=== PATIENT | female | born 1975 | race Caucasian/White ===

== ENCOUNTER 2020-01-22 21:32 | Outpatient (REF) | payer OTHER, SELFPAY | END 2020-01-22 21:52 | LOC: LBO 21:32 | PROVIDERS: PCP Family Medicine; Visit Provider Family Medicine | DX: E03.9 Hypothyroidism, unspecified (principal) | CPT/HCPCS: 84443 ==

== ENCOUNTER 2021-08-17 00:50 | Outpatient (CLI) | payer OTHER, SELFPAY ==
[2021-08-17 01:22] LABS: TSH (W/Ref FT4) 0.76 uIU/mL (0.36-3.74)
== END 2021-08-17 00:51 | disposition home or self-care (01) ==
PROVIDERS: PCP Family Medicine; Visit Provider Family Medicine
DX: E03.9 Hypothyroidism, unspecified (principal)
CPT/HCPCS: 36415; 84443

== ENCOUNTER 2022-09-17 02:10 | Outpatient (CLI) | payer OTHER, SELFPAY ==
--- NOTE | 2022-09-17 | DI.MAMMO_ITS ---
Exam(s) MAMMO SCREENING EXAM: MAMMO SCREENING CLINICAL HISTORY: SCREENING MAMMO FOR BREAST CANCER Z12.31. TECHNIQUE: Bilateral full field digital CC and MLO mammographic images were obtained with 3D tomosyn thesis and utilizing computer aided detection (CAD). COMPARISON: None. This is a baseline mammogram on this 46-year-old patient. FINDINGS: There are no spiculated masses nor malignant appearing microcalcification groups. There is no significant architectural distortion nor skin thickening-retraction. IMPRESSION: No radiographic evidence of malignancy. However I note this patient apparently has a history of six-month left breast pain. Recommend follow- up ultrasound. BI-RADS Category 1 - Negative Breast Density - Category B - Scattered areas of fibroglandular density Breast density Category C or D implies that the patient has dense breast tissue. Dense breast tissue can make it harder to find cancer on a mammogram. Dense breast tissue is also associated with an incr eased risk of breast cancer. This information about the result of the mammogram report was provided to the patient to raise their awareness. Use this report when you speak with the patient about their risks for breast cancer, which includes their family history. At that time, you may recommend additional screening tests (Ultrasoun d or MRI) as these tests may add significant information. A negative radiographic report should not delay biopsy if a dominant or clinically suspicious mass is present. Up to ten percent of cancers are not identified on mammography. A negative report may reinforce clinical impression. Adenosis and dense breasts may obscure an underlying neoplasm. False positive reports average 6 to 10%. Patient will receive a letter notifying them of these results.
== END 2022-09-17 02:30 ==
PROVIDERS: PCP Family Medicine; Visit Provider Family Medicine
DX: Z12.31 Encounter for screening mammogram for malignant neoplasm of breast (principal); N64.4 Mastodynia
CPT/HCPCS: 77063; 77067

== ENCOUNTER 2023-12-20 00:39 | Outpatient (CLI) | payer OTHER, SELFPAY ==
[2023-12-20 01:26] LABS: Calculated LDL 86 mg/dL (<100); Cholesterol 185 mg/dL (<200); HDL Cholesterol 56 mg/dL (40-60); TSH (W/Ref FT4) 2.77 uIU/mL (0.36-3.74); Triglyceride 219 mg/dL (<150)
== END 2023-12-20 00:40 | disposition home or self-care (01) ==
LOC: LBO 00:41
PROVIDERS: PCP Family Medicine; Visit Provider Family Medicine
DX: Z13.220 Encounter for screening for lipoid disorders (principal); E03.9 Hypothyroidism, unspecified
CPT/HCPCS: 80061; 84443

== ENCOUNTER 2024-09-25 17:57 | Emergency (ER) | payer OTHER, SELFPAY ==
[2024-09-25] VITALS (17 sets, daily range): BP systolic 106–134; BP diastolic 64–83; PULSE 95–123; RESP 13–33; TEMP 36.8; O2SAT 95–98
--- NOTE | 2024-09-25 17:45 | RT.EKG_ITS ---
APPROVED REPORT Exam: Resting ECG Reason for Exam: dizziness Patient Location: E HR:95 bpm ECG Measurements Heart Rate 95 AXIS GA 148 P 66 QRSd 89 QRS 92 QT 360 T 44 QTc 454 Conclusion Sinus rhythm...normal P axis, V-rate 60- [address] segment or T wave abnormalities to suggest occlusive GA
--- NOTE | 2024-09-25 18:14 | ED.GENADUL_ITS ---
Discharge Plan Disposition Patient Disposition: Home Discharge Details Clinical Impression: Gastroenteritis Primary Care Provider: Raven Vincent ED Provider: Bev Ortega Home Meds and New Rx's Prescriptions: New ondansetron 4 mg tablet,disintegrating 4 mg PO Q6H PRN PRNQty: 7 0RF No Action levothyroxine 125 mcg capsule 125 mcg PO DAILY Discharge Instructions Additional Instructions: Please call your primary care provider to schedule follow-up appointment for reassessment if you are not feeling significantly better by Saturday. Stool cultures have been ordered. Stable hydrated, drinking plenty of electrolyte rich fluids. Gatorlyte is a good option. Broths can help provide protein and needed salts. Follow a BRAT diet. Allow yourself plenty of time to rest. You may use the Zofran provided for severe nausea/vomiting as needed. Return to emergency care if you develop new fever/chills, severe abdominal pain, uncontrollable vomiting, blood in your stool or emesis, decreased urine output, or if you are very worried and need to be rechecked again immediately. Referrals: Raven Vincent MD [Primary Care Provider] - [facility] General Date/Time Provider Initiated Documentation: 09/25/24 18:05 . [facility] Narrative: Hilary is a 48 year old female who presents to the emergency department today for evaluation of sudden onset of upper abdominal pain with distention accompanied by watery diarrhea and nausea with vomiting x 1. N/V has subsided but abdominal pain, described as ground glass going through my intestines has persisted with frequent watery diarrhea; distention has decreased somewhat since onset of diarrhea. Has been able to sip water since episode of vomiting, no current nausea. No blood in stool or emesis. Denies accompanying fever/chills, congestion, sore throat, cough, change in PO intake/appetite, urinary complaints, skin/hair changes. Had watery diarrhea last week which resolved spontaneously. No family members with similar sx. Denies significant past medical history other than hypothyroidism which is treated with levothyroxine; no history of abdominal surgeries or digestive diagnoses, diabetes, or other chronic health conditions. Family history is notable for colon cancer. Has had Cologuard testing done, no colonoscopy. +daily ETOH use. Physical exam remarkable for upper abdominal tenderness with palpation. Soft,mildly distended abdomen; no rigidity or guarding. Normoactive bowel sounds. No CVA tendernesss. Easy work of breathing, lung sounds clear bilaterally. Normal heart sounds. D/dx includes but is not limited to: acute cholecystitis/cholangitis, pancreatitis, hepatitis, ileus, bowel obstruction, diverticulitis, appendicitis, peptic ulcer disease. VS reassuring, pt does not meet SIRS criteria for sepsis. I independently interpreted the following tests: EKG reassuring, NSR rate 95, normal intervals, no changes c/w acute ischemia. Leukocytosis noted, WBC 22.67 with mild thrombocytosis (plt [phone]). CMP notable for mild hypokalemia, K 3.3. TSH, lipase, lactate, and mag reassuring. UA reassuring, not consistent with infection. CT abdomen/pelvis performed. Significant for generalized enteritis pattern from stomach to rectum. Discussed findings with Dr. Pina. There is also a small cyst and subtle subcapsular abnormal hypodensity in the liver; Hilary is aware of this and has had ultrasound performed in 2023. This is being monitored by PCP. While in the emergency department, Hilary received APAP and famotidine. History and presentation most consistent with viral or bacterial gastroenteritis. Discussed case with Dr. Brice, general surgery as there is concerned about the significant leukocytosis. He recommends stool cultures, empiric antibiotic treatment is not recommended at this time. Stool cultures ordered, including fecal calprotectin and lactoferrin. Hilary was able to tolerate p.o. prior to discharge. Reviewed discharge instructions with patient, including symptomatic management, importance of good hydration, and red flags indicating need for return to emergency care Related Data Home Medications ?Medication ?Instructions ?Recorded ?Confirmed levothyroxine 125 mcg capsule 125 mcg PO DAILY 09/25/24 09/25/24 ondansetron 4 mg disintegrating 4 mg PO Q6H PRN PRN #7 tabs 09/25/24 tablet Previous Rx's ?Medication ?Instructions ?Recorded ondansetron 4 mg disintegrating 4 mg PO Q6H PRN PRN #7 tabs 09/25/24 tablet Allergies Allergy/AdvReac Type Severity Reaction Status Date / Time NSAIDS (Non-Steroidal AdvReac Intermediate Other (See Verified 09/25/24 18:02 Anti-Inflamma Comment) General Stated Complaint: Nausea/Vomit/Diar LUÍS: 3 Review of Systems Narrative: see HPI Exam Const General: cooperative, no acute distress, well developed and well groomed Nutritional Appearance: average body habitus and well nourished Orientation: alert and oriented x3 Resp Effort & Inspection: normal respiratory effort and able to speak in complete sentences Auscultation: clear to auscultation bilaterally Cardio Rate: regular rate Rhythm: regular rhythm GI Inspection: normal to inspection, no abdominal wall ecchymosis, distended (mild, soft), no visible herniation and no visible pulsation Palpation: soft, not firm, no guarding, not rigid and tender in the epigastrum, in the LUQ and in the RUQ Auscultation: normal bowel sounds Back/Spine/Pelvis Back: no CVA tenderness Skin General skin exam: no rashes or lesions noted Trauma: no lacerations or abrasions Course Vital Signs Vital signs: Vital Signs Temperature 36.8 C 09/25/24 17:58 Pulse 95 H 09/25/24 17:58 Respiratory Rate 14 09/25/24 17:58 Blood Pressure 106/83 09/25/24 17:58 Pulse Oximetry 97 09/25/24 17:58 Temperature 36.8 C 09/25/24 17:58 Pulse 95 H 09/25/24 17:58 Respiratory Rate 14 09/25/24 17:58 Blood Pressure 106/83 09/25/24 17:58 Pulse Oximetry 97 09/25/24 17:58 Oxygen Delivery Method Room Air 09/25/24 17:58 Oxygen Flow Rate 0 09/25/24 17:58 Pain Level 4 09/25/24 17:58 Medical Decision Making Imaging Data Radiologic Study: Radiologist's impression: Accession No. : [id number] Creator : Pk Pina Dictator : Pk Pina Glycerine Plant Operator : Scheduler Maintenance : Pk Pina Approver2 : Report Date : 09/25/2024 19:40:17 Exam(s) CT ABDOMEN PELVIS W Addendum dictated 09/25/2024 at 7:40 p.m. Finding in left hepatic lobe is statistically most probably a benign hemangioma. However correlation with blood work and clinical findings recommended. Developing liver abscess cannot be completely excluded in the setting of severe enteritis, despite absence of gas in the portal venous system. Clinical in blood work correlation recommended. This liver finding requires appropriate imaging follow-up. Called by myself to ER provider 09/25/2024 at 7:43 p.m. [ Addendum Report Added by Pk Pina at 09/25/2024 19:46:10 ] Exam(s) CT ABDOMEN PELVIS W EXAM: CT ABDOMEN PELVIS W CLINICAL HISTORY: upper abd pain w/ n/v/d, tender to palpation. TECHNIQUE: Imaging Protocol: Axial computed tomography images with coronal and sagittal reformatted images were created and reviewed CONTRAST MATERIAL: Intravenous: Omnipaque-350 100cc Oral: None COMPARISON: No exams were available for comparison FINDINGS: VISUALIZED LUNG BASES: No nodules nor pleural effusions evident. ABDOMEN: GI: There is a diffuse enteritis pattern. The stomach and all of the small bowel loops are fluid-filled and upper normal diameters and the entire colon is also fluid-filled and upper normal diameter. Rectum is also fluid-filled. Appendix appears unremarkable. There are few uncomplicated sigmoid diverticuli. There is no evidence of bowel obstruction, free air, abscess, nor ascites. No evidence of gas in the portal venous system. LIVER: Liver is mildly hypodense implying steatosis. There is a small sub cm cyst adjacent to the gallbladder fossa. There is a subtle subcapsular abnormal hypodensity in the left hepatic lobe which is not a cyst but difficult to assess on a single phase study. Possibly a hemangioma or other pathology. There are no dilated intrahepatic ducts. GALLBLADDER/BILIARY: No obvious gallbladder pathology. CBD is not dilated. PANCREAS: No evidence of pancreatic mass nor dilatation of the pancreatic duct. SPLEEN: Spleen is not enlarged. No obvious intrasplenic lesions. Splenic and portal veins are patent. ADRENALS: There are no significant adrenal masses. KIDNEYS:No cysts evident. No solid renal masses. No calculi nor hydronephrosis.. ABDOMINAL AORTA: Abdominal aorta is not enlarged. No significant atherosclerotic disease in the abdominal aorta nor at the takeoff points of the mesenteric arteries. Aortoiliac segments also appear nicely patent and non atherosclerotic nor aneurysmal. LYMPH NODES:There are multiple minimally prominent mesenteric lymph nodes in the abdomen and pelvis. No matted lymphadenopathy evident. ABDOMINAL WALL: No evidence of significant anterior abdominal wall nor inguinal hernia. PELVIS: GI: No evidence of appendicitis.No evidence of sigmoid diverticulitis. LYMPH NODES: There is no intrapelvic nor inguinal adenopathy. REPRODUCTIVE: Uterus and adnexal regions appear age-appropriate. There is a peripherally enhancing corpus luteal cyst in the left ovary measuring 1.8 x 1.2 cm. No surrounding fluid in the left adnexa. URINARY BLADDER: No calculi nor obvious masses evident OSSEOUS: No fractures and no significant osseous lesions. IMPRESSION: 1. Findings are consistent with diffuse enteritis involving the entire small and large bowel. 2. No evidence of bowel obstruction, free air, abscess, nor ascites. No evidence of acute appendicitis. 3. There is a subcapsular subtle abnormality in the left hepatic lobe measuring approximately 1.5 x 1 point 4 cm which is not a cyst; probably an incidental hemangioma. There is also a small benign 6 mm cyst in the right hepatic lobe adjacent to the gallbladder fossa. Report called by myself to ER provider 09/25/2024 at 7:35 pm. Quality:SDOH Health Related Social Needs: No Data to Display PFSH All Active Problems (Updated 09/25/24 @ 20:12 by Bev Burr) Gastroenteritis (Acute) Encounter for screening laboratory testing for COVID-19 virus (Acute) Encounter for screening for other viral diseases (Acute) Social History Smoking risk assessment performed?: No Alcohol Intake: current Alcohol Intake frequency: 0-2 drinks per day Substance use type: does not use PAWSS Have you Been Recently Intoxicated or Drunk Within the Last 30 days?: No Have you Ever Experienced Previous Episodes of Alcohol Withdrawal?: No Have you ever Experienced Withdrawal Seizures?: No Have you ever Experienced Delirium Tremens(DT)s?: No Have you ever undergone Alcohol Rehabilitation Treatment (i.e, inpt ot outpatient treatment programs)?: No Have you ever Experienced Blackouts?: No Have you ever Combined Alcohol with other Downers within the last 90 days?: No Have you ever Combined Alcohol with any other Substance of Abuse during the last 90 days?: No Result: 0
[2024-09-25] MEDS: Acetaminophen 325 MG TAB 650 MG PO (18:24)
[2024-09-25] MEDS: Famotidine 20 MG/2 ML VIAL IVP (18:24)
[2024-09-25 18:26] LABS: Abs Immature Grans 0.11 10^3/uL (0.0-0.06); HCT 51.6 % (36.0-46.0); HGB 17.8 g/dL (11.2-15.7); MCH 33.3 pg (27.0-33.0); MCHC 34.5 % (32.0-36.0); MCV 97 fL (80-95); MPV 9.4 fL (8.0-11.0); Platelet Count 442 10^3/uL (130-400); RBC 5.34 10^6/uL (3.93-5.22); RDW 12.5 % (11.7-14.6); RDW-SD 44.4 fL; WBC 22.67 10^3/uL (4.4-10.8)
[2024-09-25 18:42] LABS: Absolute Eosinophil Count 0.23 10^3/uL (0.0-0.7); Absolute Lymphocyte Count 4.31 10^3/uL (1.2-3.4); Absolute Monocyte Count 2.04 10^3/uL (0.1-0.8); Atypical Lymphocytes % 8 %; Bands % 4 %; Diff Comment Manual Differential; RBC Morphology Normal
[2024-09-25 18:48] LABS: ALT 49 U/L (14-59); AST 29 U/L (15-37); Albumin 4.3 g/dL (3.4-5.0); Alkaline Phosphatase 72 U/L (46-116); Anion Gap 15.2 mmol/L (3-11); BUN 10 mg/dL (7-18); CO2 22.8 mmol/L (21.0-32.0); CREATININE 0.9 mg/dL (0.55-1.02); Chloride 101 mmol/L (98-107); Estimated GFR 79.35 (mL/min/1.73m2); Glucose 136 mg/dL (74-106); Lipase 63 U/L (<78); Magnesium 2.1 mg/dL (1.8-2.4); Potassium 3.3 mmol/L (3.5-5.1); Sodium 139 mmol/L (136-145); Total Protein 8.2 g/dL (6.4-8.2)
[2024-09-25] MEDS: Omnipaque 350 MG/ML 100 ML BTL 75 ML IJ (19:14)
[2024-09-25] MEDS: Normal Saline - Diluent 50 ML VIAL IJ (19:14)
--- NOTE | 2024-09-25 19:15 | DI.CT_ITS ---
Exam(s) CT ABDOMEN PELVIS W EXAM: CT ABDOMEN PELVIS W CLINICAL HISTORY: upper abd pain w/ n/v/d, tender to palpation. TECHNIQUE: Imaging Protocol: Axial computed tomography images with coronal and sagittal reformatted images were created and reviewed CONTRAST MATERIAL: Intravenous: Omnipaque-350 100cc Oral: None COMPARISON: No exams were available for comparison FINDINGS: VISUALIZED LUNG BASES: No nodules nor pleural effusions evident. ABDOMEN: GI: There is a diffuse enteritis pattern. The stomach and all of the small bowel loops are fluid-laci led and upper normal diameters and the entire colon is also fluid-filled and upper normal diameter. Rectum is also fluid-filled. Appendix appears unremarkable. There are few uncomplicated sigmoid div erticuli. There is no evidence of bowel obstruction, free air, abscess, nor ascites. No evidence of gas in the portal venous system. LIVER: Liver is mildly hypodense implying steatosis. There is a small sub cm cyst adjacent to the ga llbladder fossa. There is a subtle subcapsular abnormal hypodensity in the left hepatic lobe which i s not a cyst but difficult to assess on a single phase study. Possibly a hemangioma or other patholo gy. There are no dilated intrahepatic ducts. GALLBLADDER/BILIARY: No obvious gallbladder pathology. CBD is not dilated. PANCREAS: No evidence of pancreatic mass nor dilatation of the pancreatic duct. SPLEEN: Spleen is not enlarged. No obvious intrasplenic lesions. Splenic and portal veins are paten t. ADRENALS: There are no significant adrenal masses. KIDNEYS:No cysts evident. No solid renal masses. No calculi nor hydronephrosis.. ABDOMINAL AORTA: Abdominal aorta is not enlarged. No significant atherosclerotic disease in the abdo sloane aorta nor at the takeoff points of the mesenteric arteries. Aortoiliac segments also appear ni frances patent and non atherosclerotic nor aneurysmal. LYMPH NODES:There are multiple minimally prominent mesenteric lymph nodes in the abdomen and pelvis. No matted lymphadenopathy evident. ABDOMINAL WALL: No evidence of significant anterior abdominal wall nor inguinal hernia. PELVIS: GI: No evidence of appendicitis.No evidence of sigmoid diverticulitis. LYMPH NODES: There is no intrapelvic nor inguinal adenopathy. REPRODUCTIVE: Uterus and adnexal regions appear age-appropriate. There is a peripherally enhancing c orpus luteal cyst in the left ovary measuring 1.8 x 1.2 cm. No surrounding fluid in the left adnexa. URINARY BLADDER: No calculi nor obvious masses evident OSSEOUS: No fractures and no significant osseous lesions. IMPRESSION: 1. Findings are consistent with diffuse enteritis involving the entire small and large bowel. 2. No evidence of bowel obstruction, free air, abscess, nor ascites. No evidence of acute appendicit is. 3. There is a subcapsular subtle abnormality in the left hepatic lobe measuring approximately 1.5 x 1 point 4 cm which is not a cyst; probably an incidental hemangioma. There is also a small benign 6 mm cyst in the right hepatic lobe adjacent to the gallbladder fossa. Report called by myself to ER provider 09/25/2024 at 7:35 pm. RADIATION DOSE DELIVERED: 581.52mGy.cm Total DLP DATA REPOSITORY: All CT scans at this facility are submitted to the National Radiology Data Registry (NRDR) Dose Index Registry (DIR) with the [employer] (A[employer]). RADIATION OPTIMIZATION: All CT scans at this facility use at least one of these dose optimization te chniques: automated exposure control; mA and/or kV adjustment per patient size (includes targeted exa ms where dose is matched to clinical indication); or iterative reconstruction.
[2024-09-25 19:24] LABS: Lactate 0.7 mmol/L (<or=2.0)
[2024-09-25 19:42] LABS: Bilirubin Small (Negative); Blood Trace-intact (Negative); Clarity Clear (Clear); Glucose Negative (Negative); Ketones Trace mg/dL (Negative); Leukocyte Esterase Negative (Negative); Nitrite Negative (Negative); Urobilinogen 0.2 mg/dL (Up to 0.2)
[2024-09-25 19:46] LABS: RBC 0-2 HPF (0-2); WBC 0-2 HPF (0-5)
[2024-09-25 19:47] LABS: Bacteria Few HPF (Negative); C & S Indicated? No; Casts 0-2 Hyaline LPF (Negative); Crystals Negative HPF (Negative); Epithelial Cells Moderate HPF (Negative); Mucus Negative (Negative)
[2024-09-25] MEDS: Ondansetron O.D.T. 4 MG TABEF, 3 TABS/BTL PO (20:16)
[2024-09-25 20:51] LABS: C Diff PCR Negative (Negative)
[2024-09-26 23:06] LABS: T4, Free 1.2 ng/dL (0.8-2.2)
[2024-09-27 20:21] LABS: Campylobacter PCR Negative (Negative); Salmonella PCR Negative (Negative); Shiga Toxin PCR Negative (Negative); Shigella/Enteroinvasive Ecoli Negative (Negative)
[2024-09-30 22:29] LABS: Calprotectin 129 mcg/g
== END 2024-09-25 20:23 | disposition home or self-care (01) ==
PROVIDERS: Emergency Provider Nurse Practitioner Family; PCP Family Medicine
DX: K52.9 Noninfective gastroenteritis and colitis, unspecified (principal); R19.7 Diarrhea, unspecified
CPT/HCPCS: 36415; 36416; 80053; 81025; 82962; 83690; 87426; 87493; 87505; 93005; 99285; 74177; 81003; 81015; 83605; 83630; 83735; 83993; 84439; 84443; 85025; 87177; 93010; 99284; J3490

== ENCOUNTER 2024-11-09 11:10 | Day surgery (SDC) | payer OTHER, SELFPAY ==
--- NOTE | 2024-11-09 06:24 | W.ANESPRE ---
General Info Date of Service Date Performed: 11/09/24 Height: 5 ft 6 in Weight: 81.193 kg Body Mass Index (BMI): 28.8 Surgical Procedure: Operation Date: 11/09/24 12:35 Proposed Procedure Side Surgeon jacy Brice MD Meds Allergies and Home Medications Allergies Allergy/AdvReac Type Severity Reaction Status Date / Time NSAIDS (Non-Steroidal AdvReac Intermediate Other (See Verified 11/09/24 11:41 Anti-Inflamma Comment) Home Medication ?Medication ?Instructions ?Recorded levothyroxine 125 mcg capsule 125 mcg PO DAILY 09/25/24 brimonidine 0.33 % topical gel 1 applic topical DAILY PRN 11/02/24 Current Visit Medications: Current Medications Generic Name Dose Route Start Last Admin Trade Name Freq PRN Reason Stop Dose Admin Ringer's Solution 1,000 mls @ 80 mls/hr 11/09/24 06:00 IV 11/09/24 23:59 INFUSION HARJINDER IV Miscellaneous Supplies 1 each 11/09/24 06:00 Iv Access IV 11/09/24 23:59 DIRECTED HARJINDER Sodium Chloride 0 ml 11/09/24 06:00 Normal Saline Flush 10 Ml Syr IV 11/09/24 23:59 PRN PRN Sodium Chloride 0 ml 11/09/24 06:00 Normal Saline 10 Ml Vial IJ 11/09/24 23:59 DIRECTED PRN Sterile Water 0 ml 11/09/24 06:00 Water,Injection,Sterile 10 Ml Vial IJ 11/09/24 23:59 DIRECTED PRN PFSH Active Problems Active Problems: Problem Status Onset Code Encounter for screening laboratory testing for COVID-19 virus Acute Z20.822 Encounter for screening for other viral diseases Acute Z11.59 Medical History Medical History Recurrent UTI (urinary tract infection) Rosacea Hypothyroid Surgical History Surgical History History of tonsillectomy and adenoidectomy H/O dilation and curettage (~1995) Tobacco Smoking/Tobacco Use Status: Current-Occasional Tobacco Type: cigarettes Passive smoking exposure: No Alcohol Alcohol Intake: current Alcohol intake frequency: 0-2 drinks per day Substance Use Substance use type: does not use Vital Signs and Lab Results Vital Signs Most Recent Vital Signs in EMR: Temp Pulse Resp BP Pulse Ox 36.3 C L 105 H 17 101/69 96 11/09/24 11:38 11/09/24 11:38 11/09/24 11:38 11/09/24 11:38 11/09/24 11:38 Lab Results Blood Type / Crossmatch: No Data to Display Complete Blood Count: No Data to Display Complete Metabolic Panel: No Data to Display Liver Function Panel: No Data to Display Coagulation Panel: No Data to Display Cardiac Panel: No Data to Display Arterial Blood Gas: No Data to Display Venous Blood Gas: No Data to Display Pancreas Panel: No Data to Display Thyroid Panel: No Data to Display Infectious Disease: No Data to Display Blood Cultures: No Data to Display Toxicology Panel: No Data to Display Panel: No Data to Display Anesthesia Assessment and Plan Anesthesia History Personal History: No History of Anesthesia Complications Family History: No Family History of Anesthesia Complications Exercise Tolerance Exercise Tolerance: Metabolic Equivalents>4 Cardiac & Pulmonary Exam Cardiac Exam: Normal S1/S2 Heart Sounds Pulmonary Exam: Clear Bilateral Breath Sounds Implantable Cardiac Device Does patient have a Pacemaker or an ICD?: No Airway Exam Known Difficult Airway: No Mallampati Class: 3 Mouth Opening: Normal (> 3cm) Thyromental Distance: Greater than 3 cm Neck Range of Motion: Full ROM Neck Circumference: Normal Teeth Condition: Normal Dentition ASA Classification ASA Score: ASA 2 Emergency Case?: No NPO Status NPO Status: NPO Clears >2 hours, Solids >8 hours Status Status: Negative HCG Anesthesia Plan Resuscitation Status: Full Code Anesthesia Technique: General Anesthesia Airway Planned: Natural Airway Monitors Used: Standard Monitors Preoperative Comments:: 48 yo female for colo. Sig PMHx: hypothyroid (on replacment), smoker, daily EtOH. ECG: sinus.
[2024-11-09 11:38] VITALS: BP 101/69; PULSE 105; RESP 17; TEMP 36.3; O2SAT 96
[2024-11-09 11:44] VITALS: BMI 28.8
[2024-11-09] MEDS: Lactated Ringers 1,000 ML 80 ML IV (11:49)
--- NOTE | 2024-11-09 12:32 | COLE_ITS ---
Date of service: 11/09/24 Time of Service: 13:56 Colonoscopy Report Date of procedure: 11/09/24 Pre-op diagnosis general: Screening colonoscopy Post-op diagnosis procedure note: other (Negative screening colonoscopy) Procedure: Colonoscopy Surgeon: Donnie Brice Anesthesia Type: General:No Airway Estimated blood loss (mL): 0 Pathology: none sent Complications: None Disposition: same day Indications: Nereyda is a 48-year-old woman with no significant risk factors for colon cancer. She is here for her first screening colonoscopy Prep: Miralax/Dulcolax Procedure Start Time: 12:44 Procedure End Time: 13:04 Retraction Time: 12 Findings: foamy bowel prep, otherwise negative colonoscopy Procedure Description: After the induction of anesthesia, and with the patient in left lateral decubitus position, I began by performing an external anorectal exam.? Perineum and skin were normal, as was the anal verge.? There was no evidence of external hemorrhoids.? Next, I performed a digital rectal exam.? I did not appreciate any abnormal findings.? Next, I advanced a colonoscope into the rectal vault.? I performed retroflexion.? This appeared normal.? Using irrigation, I then advanced the colonoscope beyond the rectal folds and into the sigmoid colon before advancing towards the cecum.? There was quite a bit of foamy liquid throughout the length of the colon. Great care was taken during advancement to maintain the true lumen of the colon over to the cecum. The quality of the prep was excellent and that there was no retained stool whatsoever. Unfortunately, there was quite a bit of foamy succus.? The scope was noted to be in the cecum by identification of the ileocecal valve and appendiceal orifice.? I then began withdrawing the colonoscope using repeated irrigation as necessary for full evaluation of the colonic mucosa. It took quite a bit of irrigation, and careful examination to rule out any polyps. Although the quality of the prep was sufficient such that medium and large size polyps could be ruled out, vi sualization resulting from the phone bottles may have obscured smaller polyps. Once the scope was withdrawn to the level of the rectum, great care was taken to examine portions of the rectal folds.? No other abnormalities were appreciated finally, the scope was withdrawn and the patient was brought to the same-day surgery recovery unit as the anesthetic wore off. ?The findings and instructions were shared with the patient prior to discharge. We will plan for a follow-up colonoscopy in 5 years given the limitations of the prep [place] Bowel Prep [place] Bowel Prep Right Colon: 3 Left Colon: 3 Transverse Colon: 3 Total Score: 9
--- NOTE | 2024-11-09 12:32 | W.PM.DSUDISC ---
Date of service: 11/09/24 Discharge Plan Disposition Patient Disposition: Home Condition: Good Discharge Details Reason For Visit: Screening colonoscopy Attending Provider: Donnie Brice Primary Care Provider: Raven Vincent Home Meds and New Rx's Prescriptions: Continued brimonidine 0.33 % gel 1 applic topical DAILY PRN levothyroxine 125 mcg capsule 125 mcg PO DAILY Discharge Instructions Instructions: Diverticulosis Additional Instructions: Hilary, was very nice meeting you today, and I hope you feel well after the colonoscopy. Things went very smoothly. I did not see any signs of tumors or polyps. Incidentally, you do have some diverticulosis. Diverticula are little weak spots in the muscular layer of the colon wall. This causes little pockets or pouches to form. These pockets are called diverticula, and the condition of having them is referred to as diverticulosis. On occasion, these can become impacted with stool resulting in inflammation which is sometimes experienced as pain, usually on the left lower side of the abdomen. We refer to those flareups as diverticulitis. Hopefully, years never bother you. I have attached a little bit of information here about typical approaches to diverticular disease. Although your prep was excellent, there was quite a bit of bubbling and foam within the residual liquid inside of your colon. This can compromise detection of very small polyps. I would typically recommend a patient with a normal colonoscopy and no other risk factors follow-up in 10 years, but to be safe, I think a 5-year interval is most appropriate. If you need anything, or have any questions at all, please do not hesitate to ask at any time. 1. If tolerated, consume a soft, low fiber diet for 1-2 days. 2[address] Do not drive, drink alcohol, operate machinery, make critical decisions, or do activities that require coordination or balance for 24 hours. 3. Because air was put into your colon during the procedure, expelling air from your rectum (passing gas or farting) is normal. 4. You may not have a bowel movement for 1-3 days because of the colonoscopy prep. This is normal. 5. Go directly to the emergency room if you notice any of the following: Develop chills (warm to touch), or if you have a thermometer and your temperature is above 101 Difficulty breathing or difficultly swallowing Persistent vomiting Severe abdominal pain, other than gas cramps Severe chest pain Black, tarry stools Any bleeding ? exceeding one tablespoon 6. Call your physician if the site where your intravenous was started becomes red, swollen, painful, and warm to touch. 7. Your physician has reviewed your pre-procedure medications. Please continue to take those medications as previously ordered. You will be given specific information/education regarding any changes to your medications before leaving. Activity:: Activity as Tolerated Diet:: As Tolerated Discharge Orders Discharge Orders: Discharge Order (Routine); Ordered 11/09/24 Ordered By: Donnie Brice DS: Diagnosis Discharge Diagnosis (1) Encounter for screening colonoscopy: Status: Acute Asessment and Plan: Negative screening colonoscopy; because of foam, 5-year interval for the next screening
[2024-11-09 13:10] VITALS: BP 105/83; PULSE 117; RESP 16; TEMP 36.6; O2SAT 98
--- NOTE | 2024-11-09 13:25 | W.ANESPOSTOP ---
Postoperative Evaluation Date, Time and Location Date Performed: 11/09/24 Time Performed: 13:25 Patient Location: Day Surgery Unit Vital Signs Most Recent Imported Vital Signs: Most Recent Vital Signs Temp Pulse Resp BP Pulse Ox 36.3 C L 105 H 17 101/69 96 11/09/24 11:38 11/09/24 11:38 11/09/24 11:38 11/09/24 11:38 11/09/24 11:38 Pain Score Most Recent Pain Score: Most Recent Pain Score Pain Level 0 11/09/24 11:38 Assessment Mental Status: Awake (Alert & Oriented to Patient Baseline) Airway and Respiratory Function: Patent airway with normal (patient baseline) respiratory exam Cardiovascular Function: Hemodynamically Stable (VS stable and reviewed in DSU. ) Hydration Status: Adequately Hydrated Nausea & Vomiting: No Nausea or Vomiting Pain: Pt. Denies Any Pain Peripheral Nerve Block: Patient did not receive a nerve block
== END 2024-11-09 13:51 | disposition home or self-care (01) ==
PROVIDERS: PCP Family Medicine; Visit Provider Surgery
PROC: 0DJD8ZZ Inspection of Lower Intestinal Tract, Via Natural or Artificial Opening Endoscopic (ICD-10-PCS; CPT 45378; principal; 2024-11-09 12:30)
DX: Z12.11 Encounter for screening for malignant neoplasm of colon (principal); F17.210 Nicotine dependence, cigarettes, uncomplicated; F10.90 Alcohol use, unspecified, uncomplicated; E03.9 Hypothyroidism, unspecified
CPT/HCPCS: 45378; J2371; J2704